=== PATIENT | female | born 1985 | race Caucasian/White ===

== ENCOUNTER 2017-03-18 11:22 | Emergency (ER) | payer MEDICAID ==
[~2017-03-18] VITALS: Ht 170.2 cm; Wt 78.5 kg
[~2017-03-18 11:22] MED LIST: ALPR-475 PO; BUSP10TA PO; CLON0.1T PO; CLON0.5T PO; IBUP200C; LAMO25TA5 PO; LITH300C PO; ONDA4TAB10 PO; SUMA25TA3 PO; ZIPR40CA3 PO
[2017-03-18] MEDS ORDERED: SODIUM CHLORIDE FLUSH 10ML SYR IVF ONE (12:00)
[2017-03-18] MEDS ORDERED: SODIUM CHLORIDE 0.9% 1,000ML IV ONE (12:00)
[2017-03-18] MEDS ORDERED: MORPHINE SULFATE 4 MG/ML, 1ML IVPush PRN (12:00)
[2017-03-18] MEDS ORDERED: ONDANSETRON 2MG/ML, 2ML IVPush ONE (12:00)
[2017-03-18 12:59] LABS: BLOOD UREA NITROGEN 13 mg/dL (7-18)
[2017-03-18] MEDS ORDERED: ONDANSETRON 2MG/ML, 2ML ONE (14:44)
[2017-03-18] MEDS ORDERED: MORPHINE SULFATE 4 MG/ML, 1ML ONE (14:44)
[2017-03-18 16:04] VITALS: BP 128/64
[2017-03-18] MEDS ORDERED: GENTAMICIN 80 MG/2 ML IM ONE (16:30)
[2017-03-18] MEDS ORDERED: AZITHROMYCIN 500 MG TABLET PO ONE (16:30)
== END 2017-03-18 16:54 | disposition home or self-care (01) ==
LOC: ED 14:55
DX: N73.9 Female pelvic inflammatory disease, unspecified (principal); R10.2 Pelvic and perineal pain; G43.909 Migraine, unspecified, not intractable, without status migrainosus; Z90.49 Acquired absence of other specified parts of digestive tract; Z88.1 Allergy status to other antibiotic agents; Z90.89 Acquired absence of other organs
CPT/HCPCS: 36415; 76830; 80048; 81001; 82040; 84703; 85025; 87086; 87210; 87491; 87591; 87808; 96372; 96374; 96375; 99285; J1580; J2405; J7030

== ENCOUNTER 2019-09-04 16:19 | Emergency (ER) | payer MEDICAID ==
[~2019-09-04] VITALS: Ht 170.2 cm; Wt 107.5 kg
[~2019-09-04 16:19] MED LIST changes: -ALPR-475 PO; +ALPR0.5T7 PO; -CLON0.1T PO; +CLON0.1T22 PO; +IBUP-1623; -IBUP200C
[2019-09-04 16:23] VITALS: BP 130/80
== END 2019-09-04 17:53 | disposition home or self-care (01) ==
LOC: ED 17:47
DX: S70.02XA Contusion of left hip, initial encounter (principal); M54.32 Sciatica, left side; Z88.1 Allergy status to other antibiotic agents; Z88.9 Allergy status to unspecified drugs, medicaments and biological substances; W01.0XXA Fall on same level from slipping, tripping and stumbling without subsequent striking against object, initial encounter; Y93.89 Activity, other specified; Y92.89 Other specified places as the place of occurrence of the external cause; Y99.8 Other external cause status
CPT/HCPCS: 72110; 72220; 73502; 99283; J7512